=== PATIENT | male | born 1995 | race Caucasian/White ===

== ENCOUNTER 2018-08-10 19:33 | Emergency (ER) | payer BC, MEDICAID, SELFPAY ==
[~2018-08-10] VITALS: Ht 182.9 cm; Wt 85.5 kg
[2018-08-10 20:10] VITALS: BP 151/85
[2018-08-10 21:04] LABS: RAPID INFLUENZA A Negative (Negative); RAPID INFLUENZA B Negative (Negative)
[2018-08-10] MEDS ORDERED: DEXAMETHASONE 4 MG TABLET ONE (21:44)
[2018-08-10] MEDS ORDERED: DEXAMETHASONE 4 MG TABLET PO ONE (22:00)
== END 2018-08-10 21:56 | disposition home or self-care (01) ==
LOC: ED 21:50
DX: J02.0 Streptococcal pharyngitis (principal)
CPT/HCPCS: 87400; 87880; 99284